=== PATIENT | female | born 1980 | race Caucasian/White ===

== ENCOUNTER 2016-03-18 15:37 | Outpatient (CLI) ==
[2015-09-16 12:25] VITALS: BMI 23.2
--- NOTE | 2016-03-18 16:14 | US ---
EXAM: ULTRASOUND LOWER EXTREMITY VENOUS DOPPLER EXAM HISTORY: Pain and swelling. FINDDINGS: Right lower extremity venous Doppler exam. Real time miramontes-scale, Doppler spectral analys is and color-flow Doppler imaging performed. The veins targeted for evaluation include the common f emoral, greater saphenous, profundus, femoral, popliteal, peroneal, anterior tibial and posterior ti bial. The evaluated veins demonstrated normal spontaneous flow and compression without evidence of thrombosis. No valvular reflux. IMPRESSION: No venous thrombosis identified within the areas evaluated.
== END 2016-03-18 15:38 | disposition home or self-care (01) ==
LOC: RAD 15:37
PROVIDERS: ATTEND Family Medicine
DX: M79.604 Pain in right leg (principal); M79.89 Other specified soft tissue disorders

== ENCOUNTER 2016-04-17 17:12 | Emergency (ER) | payer OTHER ==
[2016-04-17 17:35] VITALS: BP 115/68; TEMP 98.4; BMI 21.6
--- NOTE | 2016-04-17 17:40 | ED.PDOC ---
General ED Provider: Dr. LAMONT MCKOY Chief Complaint: Nausea/Vomiting Stated Complaint: N/V/D; started with Diarrhea, Nausea and Vomiting on Thursday. Started medications from Dr. Guerra yesterday. Less diarrhea now but still with N/V Time Seen by Physician: 17:39 Mode of Arrival: Walk-In Information Source: Patient Exam Limitations: No limitations Primary Care Provider: SIMONE GUERRA Nursing and Triage Documentation Reviewed and Agree: Yes Review of Systems - Review Of Systems Constitutional: Reports: Malaise, Weakness Ears, Nose, Mouth, Throat: Reports: No symptoms Respiratory: Reports: No symptoms Cardiac: Reports: No symptoms GI: Reports: Diarrhea, Nausea Neurological: Reports: No symptoms All Other Systems: Reviewed and Negative Past Medical History - Past Medical History Previously Healthy: Yes Endocrine: Reports: None Cardiovascular: Reports: None Respiratory: Reports: None Hematological: Reports: None Gastrointestinal: Reports: None Genitourinary: Reports: None Neuro/Psych: Reports: None Musculoskeletal: Reports: None Cancer: Reports: None Last Menstrual Period: 03/18 - Surgical History General Surgical History: Reports: None, Unknown - Family History Family History: Reports: Unknown - Social History Smoking Status: Vaping Hx Substance Use: No Alcohol Screening: None Physical Exam - Physical Exam Appearance: Ill-appearing Ill-appearing: Moderate Eyes: LIZZIE, EOMI ENT: Oropharynx normal Neck: Supple Respiratory: Airway patent, Breath sounds clear, Breath sounds equal Cardiovascular: RRR, Pulses normal GI/: Soft, Nontender, No masses, Bowel sounds hyperactive Musculoskeletal: Normal strength, ROM intact Skin: Warm, Dry, Normal color Neurological: Sensation intact, Motor intact Psychiatric: Affect appropriate, Mood appropriate Re-Evaluation - Re-Evaluation Time of Re-Evaluation: 19:01 Status: Improved (feels much better) Vital Signs Stable: Yes Appearance: NAD Skin: Warm and Dry Neuro: Alert and Oriented X3 Critical Care Note - Critical Care Note Total Time (mins): 12 Course - Course Hematology/Chemistry: 04/17/16 17:55 04/17/16 17:55 Orders, Labs, Meds: Lab Review 04/17/16 04/17/16 17:55 18:34 WBC 5.88 RBC 4.79 Hgb 14.1 Hct 40.3 MCV 84.1 MCH 29.4 MCHC 35.0 RDW Coeff of Vikram 12.8 Plt Count 245 Neutrophils % (Manual) 63.0 Band Neutrophils % 0.0 Lymphocytes % (Manual) 18.0 Monocytes % (Manual) 15.0 H Eosinophils % (Manual) 3.0 Basophils % (Manual) 1.0 Sodium 136 Potassium 3.4 L Chloride 101 Carbon Dioxide 25 Anion Gap 13.4 BUN 20 H Creatinine 1.03 Estimated GFR (MDRD) 61.00 BUN/Creatinine Ratio 19.41 Glucose 103 Calcium 8.6 Total Bilirubin 0.67 AST 12 L ALT 13 Alkaline Phosphatase 44 Total Protein 6.5 Albumin 3.3 L Globulin 3.2 Albumin/Globulin Ratio 1.03 Serum , Qual Negative Urine Color Dark Urine Clarity Cloudy Urine pH 5.5 Ur Specific [place] 1.025 Urine Protein 1+ Urine Glucose (UA) Negative Urine Ketones 1+ Urine Blood Negative Urine Nitrite Negative Urine Bilirubin 2+ Urine Urobilinogen 1.0 Ur Leukocyte Esterase Trace Urine Microscopic RBC 2-5 Urine Microscopic WBC 5-10 Ur Squamous Epith Cells 5-10 Urine Bacteria 2+ Orders Category Date Time Status CBC W/ AUTO DIFF Stat LAB 04/17/16 17:55 Completed COMPREHENSIVE METABOLIC PANEL Stat LAB 04/17/16 17:55 Completed MANUAL DIFFERENTIAL Stat LAB 04/17/16 17:55 Completed SERUM Stat LAB 04/17/16 17:55 Completed URINALYSIS C & S IF INDICATED Stat LAB 04/17/16 18:34 Completed URINE CULTURE Stat LAB 04/17/16 18:46 Received Ondansetron HCl/Pf [Zofran 4 mg/2 ml] MEDS 04/17/16 18:28 Discontinued 4 mg IVP ONCE STA Sodium Chloride 0.9% [Sodium Chloride] 1,000 ml MEDS 04/17/16 17:45 Discontinued IV BOLUS Medications Discontinued Medications Generic Name Dose Route Start Last Admin Trade Name Freq PRN Reason Stop Dose Admin Sodium Chloride 1,000 mls @ 1,000 mls/hr 04/17/16 17:45 04/17/16 18:20 Sodium Chloride IV 04/17/16 18:44 1,000 mls/hr BOLUS STA Administration Ondansetron HCl 4 mg 04/17/16 18:28 04/17/16 18:42 Zofran 4 Mg/2 Ml IVP 04/17/16 18:29 4 mg ONCE STA Administration Vital Signs: Temp Pulse Resp BP Pulse Ox 04/17/16 17:13 98.4 F 93 H 20 115/68 92 L Departure - Departure Time of Disposition: 19:02 Disposition: HOME SELF-CARE Discharge Problem: Urinary tract infection Instructions: Urinary Tract Infection in Women (ED) Condition: Good Pt referred to PMD for follow-up: Yes (Call for appointment) Additional Instructions: Take antibiotic as prescribed for urinary tract infection; continue with medications prescribed yesterday by Trena Bran Prescriptions: Ondansetron [Zofran Odt] 4 mg PO Q6HR PRN #10 tab.rapdis PRN Reason: Nausea / Vomiting Sulfamethoxazole/Trimethoprim [Bactrim Ds 800/160 mg] 1 tab PO Q12HR #14 tablet Allergies/Adverse Reactions: Allergies No Known Allergies Allergy (Verified 09/16/15 12:30) Home Medications: Ambulatory Orders Lisinopril [Zestril] 5 mg PO PRN 11/15/14 Ondansetron [Zofran Odt] 4 mg PO Q6HR PRN #10 tab.rapdis 04/17/16 Sulfamethoxazole/Trimethoprim [Bactrim Ds 800/160 mg] 1 tab PO Q12HR #14 tablet 04/17/16
[2016-04-17 18:06] LABS: HEMATOCRIT 40.3 % (37.0-47.0); HEMOGLOBIN 14.1 g/dl (12.0-16.0); MEAN CORPUSCULAR HEMOGLOBIN 29.4 pg (27.0-31.0); MEAN CORPUSCULAR VOLUME 84.1 fl (81.0-99.0); PLATELET COUNT 245 10^3/uL (140-440); RED BLOOD COUNT 4.79 10^6/ul (4.20-5.40); WHITE BLOOD COUNT 5.88 K/ul (4.6-10.2)
[2016-04-17 18:19] LABS: ANISOCYTOSIS NOT PRESENT (NOT PRESENT)
[2016-04-17] MEDS: SODIUM CHLORIDE 1,000 ML IV STA (18:20)
[2016-04-17 18:24] LABS: ALBUMIN 3.3 g/dL (3.4-5.0); ALBUMIN/GLOBULIN RATIO 1.03; ANION GAP 13.4; BILIRUBIN,TOTAL 0.67 mg/dL (0.00-1.20); BUN/CREATININE RATIO 19.41; CALCIUM 8.6 mg/dL (8.2-10.2); CREATININE 1.03 mg/dL (0.60-1.30); POTASSIUM 3.4 mmol/L (3.5-5.10); TOTAL PROTEIN 6.5 g/dL (6.4-8.2)
[2016-04-17 18:26] LABS: SERUM PREGNANCY INTERNAL QC INTERNAL QC VALID
[2016-04-17 18:42] LABS: BILIRUBIN,URINE 2+ (NEGATIVE); KETONES,URINE 1+ (NEGATIVE); LEUKOCYTE ESTERASE ,URINE Trace (NEGATIVE); NITRITE,URINE Negative (NEGATIVE); PH,URINE 5.5 (5-9); PROTEIN,URINE 1+ (NEGATIVE); URINE, BLOOD Negative (NEGATIVE)
[2016-04-17] MEDS: ZOFRAN 4 MG/2 ML IVP STA (18:42)
[2016-04-17 18:45] LABS: ADD URINE MICROSCOPIC YES
[2016-04-17 18:46] LABS: BACTERIA,URINE 2+ (NOT PRESENT)
== END 2016-04-17 19:25 | disposition home or self-care (01) ==
LOC: ED 17:12
DX: N39.0 Urinary tract infection, site not specified (principal)
CPT/HCPCS: 36415; 80053; 81001; 84703; 85007; 85025; 87086; 96361; 96374; 96375; 99283

== ENCOUNTER 2016-06-06 11:18 | Emergency (ER) ==
[2016-06-06 11:24] VITALS: TEMP 96.6; BMI 23.1
[2016-06-06] MEDS ORDERED: ZOFRAN TAB PO STA (11:31)
[2016-06-06 11:40] LABS: BASOPHILS # (AUTO) 0.1 K/uL (0-0.2); EOSINOPHILS # (AUTO) 0.3 K/ul (0.0-0.7); HEMATOCRIT 36.6 % (37.0-47.0); HEMOGLOBIN 12.4 g/dl (12.0-16.0); IMMATURE GRANULOCYTE % (AUTO) 0.3 % (0.0-5.0); LYMPHOCYTES # (AUTO) 1.5 K/uL (0.60-3.4); LYMPHOCYTES % (AUTO) 25.5 (10.0-50.0); MEAN CORPUSCULAR HEMOGLOBIN 29.6 pg (27.0-31.0); MEAN CORPUSCULAR HGB CONC 33.9 (31.8-35.4); MEAN CORPUSCULAR VOLUME 87.4 fl (81.0-99.0); MONOCYTES # (AUTO) 0.3 K/uL (0.4-2.0); MONOCYTES % (AUTO) 5.5 (0-10); NEUTROPHILS # (AUTO) 3.8 K/ul (2.0-6.9); NEUTROPHILS % (AUTO) 62.7; PLATELET COUNT 247 10^3/uL (140-440); RED BLOOD COUNT 4.19 10^6/ul (4.20-5.40); WHITE BLOOD COUNT 6.04 K/ul (4.6-10.2)
[2016-06-06 11:53] LABS: SERUM PREGNANCY INTERNAL QC INTERNAL QC VALID
[2016-06-06 12:18] LABS: ALBUMIN/GLOBULIN RATIO 1.33; ANION GAP 11.7; BILIRUBIN,TOTAL 0.58 mg/dL (0.00-1.20); CALCIUM 8.9 mg/dL (8.2-10.2); POTASSIUM 3.7 mmol/L (3.5-5.10)
[2016-06-06 12:19] LABS: BUN/CREATININE RATIO 9.85; CREATININE 0.71 mg/dL (0.60-1.30)
--- NOTE | 2016-06-06 12:31 | CT ---
EXAM: CT of the head without contrast. HISTORY: Pain. COMPARISON: 09/16/[address] TECHNIQUE: Noncontrast CT of the head. FINDINGS: No intracranial hemorrhage or mass effect is identified. The sulci and ventricles are normal in size and configuration. No miramontes white matter differentiation loss is seen to suggest an acute infarct. The calvarium is intact. The visualized paranasal sinuses are unopacified. IMPRESSION: No evidence of an acute intracranial process.
--- NOTE | 2016-06-06 12:35 | ED.PDOC ---
General ED Provider: Dr. CITLALI ARGUELLES Chief Complaint: Hypertension Stated Complaint: hypertension Time Seen by Physician: 11:19 (seen with nursing staff at all times ) Mode of Arrival: Walk-In Information Source: Patient Exam Limitations: No limitations Primary Care Provider: SIMONE GUERRA Nursing and Triage Documentation Reviewed and Agree: Yes Cardiovascular Complaint Exam - Hypertension Complaint/Exam Onset/Duration: 1 day B/P AT HOME MAX 150 SYSTOLIC REPORTED Symptoms Are: Resolved Timing: Intermittent Aggravating: Reports: None Alleviating: Reports: None Associated Signs and Symptoms: Denies: Chest pain, Vision changes, Anxiety, Recent stress, Headache, Numbness, Tingling, Weakness, Dizziness, Short of air, Swelling Related History: Reports: Similar episode Related Surgical History: Reports: None Cardiac Risk Factors: Reports: Hypertension Recent Change in Medications: No A/V [place]: No Papilledema Present: No Carotid Bruit Present: No Femoral Pulses Bounding: No Differential Diagnoses: Hypertension Quality Indicator For Non-Traumatic Chest Pain/Syncope: EKG Performed Review of Systems - Review Of Systems Constitutional: Reports: No symptoms Eyes: Reports: No symptoms Ears, Nose, Mouth, Throat: Reports: No symptoms Respiratory: Reports: No symptoms Cardiac: Reports: No symptoms GI: Reports: No symptoms : Reports: No symptoms Musculoskeletal: Reports: No symptoms Skin: Reports: No symptoms Neurological: Reports: No symptoms Endocrine: Reports: No symptoms Hematologic/Lymphatic: Reports: No symptoms All Other Systems: Reviewed and Negative Past Medical History - Past Medical History Previously Healthy: Yes Endocrine: Reports: None Cardiovascular: Reports: None Respiratory: Reports: None Hematological: Reports: None Gastrointestinal: Reports: None Genitourinary: Reports: None Neuro/Psych: Reports: None Musculoskeletal: Reports: None Cancer: Reports: None Last Menstrual Period: 1 month ago - Surgical History General Surgical History: Reports: None, Unknown - Family History Family History: Reports: Unknown - Social History Smoking Status: Vaping Hx Substance Use: No Alcohol Screening: None Physical Exam - Physical Exam Appearance: Well-appearing, No pain distress, Well-nourished Eyes: LIZZIE, EOMI, Conjunctiva clear ENT: Ears normal, Nose normal, Oropharynx normal Respiratory: Airway patent, Breath sounds clear, Breath sounds equal, Respirations nonlabored Cardiovascular: RRR, Pulses normal, No rub, No murmur GI/: Soft, Nontender, No masses, Bowel sounds normal, No Organomegaly Musculoskeletal: Normal strength, ROM intact, No edema, No calf tenderness Skin: Warm, Dry, Normal color Neurological: Sensation intact, Motor intact, Reflexes intact, Cranial nerves intact, Alert, Oriented Psychiatric: Affect appropriate, Mood appropriate Interpretation - Radiology Interpretation Radiology Interpretation By: Radiologist Radiology Results: No acute changes Exam Interpreted: CT Scan Critical Care Note - Critical Care Note Total Time (mins): 0 Course - Course Hematology/Chemistry: 06/06/16 11:35 06/06/16 11:35 Orders, Labs, Meds: Lab Review 06/06/16 11:35 WBC 6.04 RBC 4.19 L Hgb 12.4 Hct 36.6 L MCV 87.4 MCH 29.6 MCHC 33.9 RDW Coeff of Vikram 12.9 Plt Count 247 Immature Gran % (Auto) 0.3 Neut % (Auto) 62.7 Lymph % (Auto) 25.5 [place] % (Auto) 5.5 Eos % (Auto) 5.0 Baso % (Auto) 1.0 Immature Gran # (Auto) 0.0 Neut # 3.8 Lymph # 1.5 [place] # 0.3 L Eos # 0.3 Baso # 0.1 Sodium 139 Potassium 3.7 Chloride 106 Carbon Dioxide 25 Anion Gap 11.7 BUN 7 Creatinine 0.71 Estimated GFR (MDRD) 94.00 BUN/Creatinine Ratio 9.85 Glucose 86 Calcium 8.9 Total Bilirubin 0.58 AST 17 ALT 20 Alkaline Phosphatase 51 Total Protein 7.0 Albumin 4.0 Globulin 3.0 Albumin/Globulin Ratio 1.33 Free T4 0.98 Serum , Qual Negative Orders Category Date Time Status EKG-(ED ONLY) Stat CARDIO 06/06/16 11:24 Completed CBC W/ AUTO DIFF Stat LAB 06/06/16 11:35 Completed COMPREHENSIVE METABOLIC PANEL Stat LAB 06/06/16 11:35 Completed FREE T4 (FREE THYROXINE) Stat LAB 06/06/16 11:35 Completed SERUM Stat LAB 06/06/16 11:35 Completed Ondansetron HCl [Zofran Tab] MEDS 06/06/16 11:31 Discontinued 4 mg PO ONCE STA CT HEAD W/O CONTRAST Stat RADS 06/06/16 11:24 Completed Medications Discontinued Medications Generic Name Dose Route Start Last Admin Trade Name Freq PRN Reason Stop Dose Admin Ondansetron HCl 4 mg 06/06/16 11:31 06/06/16 11:39 Zofran Tab PO 06/06/16 11:32 4 mg ONCE STA Administration Vital Signs: Temp Pulse Resp BP Pulse Ox 06/06/16 11:19 96.6 F L 71 18 145/89 H 98 AMY Risk Score AMY Risk Score: Risk Score Odds of by 30D 0 0.1 (0.1-0.2) 1 0.3 (0.2-0.3) 2 0.4 (0.3-0.5) 3 0.7 (0.6-0.9) 4 1.2 (1.0-1.5) 5 2.2 (1.9-2.6) 6 3.0 (2.5-3.6) 7 4.8 (3.8-6.1) Departure - Departure Time of Disposition: 12:34 Disposition: HOME SELF-CARE Discharge Problem: Hypertension Qualifiers: Hypertension type: other secondary hypertension Qualifier Code: (I15.8) Other secondary hypertension Instructions: Hypertension (ED) Condition: Good Pt referred to PMD for follow-up: No Additional Instructions: Please call your Family Physician as soon as possible to schedule a follow-up appointment. Allergies/Adverse Reactions: Allergies No Known Allergies Allergy (Verified 06/06/16 11:25) Home Medications: Ambulatory Orders Lisinopril [Zestril] 5 mg PO PRN PRN 11/15/14 Disposition Discussed With: Patient
[2016-06-06 12:52] VITALS: BP 120/90
== END 2016-06-06 12:52 | disposition home or self-care (01) ==
LOC: ED 11:18
DX: I10 Essential (primary) hypertension (principal)
CPT/HCPCS: 36415; 80053; 84439; 84703; 85025; 93005; 93010; 99283